=== PATIENT | male | born 2000 | race Caucasian/White ===

== ENCOUNTER 2019-09-16 09:21 | Day surgery (SDC) | payer OTHER ==
[2019-09-15 11:37] LABS: Absolute Lymphocytes (CBC) 1.1 K/uL (0.7-4.9); Basophils % 0.7 % (0-1.3); Hematocrit 43.8 % (39.6-49.0); Lymphocytes % 18.5 % (15.3-44.8); MPV 8.6 fL (7.6-11.3); RBC Red Blood Cell Count 5.21 M/uL (4.33-5.43)
[2019-09-15 11:59] LABS: ALT/SGPT 23 U/L (12-78); AST/SGOT 18 U/L (15-37); Albumin 4.1 g/dL (3.4-5.0); Alkaline Phosphatase 68 U/L (45-117); Amylase 28 U/L (25-115); BUN Blood Urea Nitrogen 11 mg/dL (7-18); Bicarbonate 30 mmol/L (21-32); Bilirubin Direct 0.2 mg/dL (0-0.2); Bilirubin Total 0.4 mg/dL (0.2-1.0); Glucose Level 94 mg/dL (74-106); Potassium 4.1 mmol/L (3.5-5.1); Protein, Total 7.2 g/dL (6.4-8.2); Sodium Level 142 mmol/L (136-145)
[2019-09-16] MEDS ORDERED: MIDAZOLAM HCL 2 MG/2 ML INJ ONE (09:34)
--- OUTSIDE RECORDS SUMMARY | 2019-09-16 09:34 | XMS REPORT ---
:2000 [facility] Address [address] [place] [id number] Care Team Providers Name Role Phone Unavailable Unavailable Unavailable Problems This patient has no known problems. Allergies, Adverse Reactions, Alerts This patient has no known allergies or adverse reactions. Medications This patient has no known medications. Encounters Start End Encounter Admission Attending Care Care Encounter Date/Time Date/Time Type Type Clinicians Facility Department ID 2019-08-27 2019-08-27 Emergency E [facility] [id number] 06:37:00 06:37:00 2019-04-25 2019-04-25 Emergency E [facility] [id number] 11:52:00 11:52:00
[2019-09-16] MEDS ORDERED: dexAMETHasone 10 MG/ML VIAL ONE (09:35)
[2019-09-16] MEDS ORDERED: propofoL 200 MG/20 ML VIAL IV ONE (09:35)
[2019-09-16] MEDS ORDERED: FENTANYL CITR 100 MCG/2 ML ONE (09:35)
[2019-09-16] MEDS ORDERED: LIDOCAINE 2% MPF 5 ML VIAL ONE (09:35)
[2019-09-16] MEDS ORDERED: ROCURONIUM 50 MG/5 ML VIAL IV ONE (09:36)
[2019-09-16] MEDS ORDERED: CEFOXITIN/SWI 1gm 1 GM/10 ML SYR ONE (09:44)
[2019-09-16] MEDS ORDERED: Ringers Lactate 1,000 ML IV ONE (09:44)
[2019-09-16] MEDS ORDERED: KETOROLAC 30 MG/ML INJ ONE (10:41)
[2019-09-16] MEDS ORDERED: GLYCOPYRROLATE 0.2 MG/ML SYR ONE (10:41)
[2019-09-16] MEDS ORDERED: NEOSTIGMINE 1 MG/ML -5 ML ONE (10:43)
[2019-09-16] MEDS ORDERED: Mastisol Adhesive Liq ONE (10:50)
--- NOTE | 2019-09-16 11:16 | P.BOP ---
Preoperative diagnosis: RUQ abd pain Postoperative diagnosis: same Primary procedure: Diagostic laparoscopy, Laparoscopic cholecystectomy Anesthesia: General Complications: None Transferred to: Recovery Room Condition: Good
[2019-09-16] MEDS: MEPERIDINE HCL 25 MG/ML SYR ONE ×2 (11:50→11:56)
[2019-09-16] MEDS: HYDROMORPHONE HCL 1 MG/ML INJ ONE ×2 (11:55→12:00)
[2019-09-16 11:56] VITALS: O2SAT 98
[2019-09-16] MEDS ORDERED: CODEINE 30MG/APAP 300MG TAB ONE (12:49)
[2019-09-16 13:03] VITALS: TEMP 97
[2019-09-16 13:14] VITALS: BP 118/74
--- NOTE | 2019-09-16 16:53 | DS ---
Date of Discharge: 09/16/2019 Diagnoses: Right upper quadrant abdominal pain, cholecystitis biliary dyskinesia, mesenteric adeniti s, and ascending colon colitis. Disposition: Home. Activity: As tolerated. No heavy lifting. Followup: Follow up in the office in 1 week. Call for appointment at [phone]. Discharge Instructions: Keep area dry for 48 hours, then may shower. Keep Steri-Strips intact. Medications: Include Cipro 500 p.o. q.12, Tylenol No. 3 q.4 hours p.r.n. Details of this and the pi ctures of the diagnostic lap were given to the patient and mother, fully explained the need to a foll owup with the corrections identification technician in this case with Dr. García, because patient will need a colonoscop y sooner than later. They understood. REYMUNDO/CATHERINE Voice ID: [id number] Report ID: [id number]
--- NOTE | 2019-09-16 17:02 | OP ---
Date of Procedure: 09/16/2019 Surgeon: Syed Cartagena MD Preoperative Diagnoses: Right upper quadrant abdominal pain, biliary dyskinesia, acute cholecystitis , mesenteric adenitis. Cannot rule out appendicitis. Postoperative Diagnoses: Right upper quadrant abdominal pain, biliary dyskinesia, acute cholecystiti s, mesenteric adenitis. Cannot rule out appendicitis. Procedures: Diagnostic laparoscopy, laparoscopic cholecystectomy. Anesthesia: General plus local. Findings: Gallbladder looks with mild information in that area. The area of the appendix looks with no extraluminal masses of inflammation. The cecum outside does not look erythematosus or inflamed, but when we pressed the area just above the cecum. When it started in the proximal ascending colon, he had a mass effect on that area. I am unable to say if that mass effect is infectious in origin or a neoplastic or bacteria. It could be even stool present in that area. I did not see outside of th e colon anything at that moment that we have to resect, although colonoscopy when this is, however, s hould be recommended. In the area of the small bowel, there were not seen any extraluminal masses. The liver and stomach with no extraluminal masses. History Of Present Illness: This is the case of a 19-year-old patient, who comes to us with abdomina l pain. He has been to his primary doctor. He has been to his breaker up back and forth try ing to find his condition and after all the workup he was found to have a biliary dyskinesia with a d uplication of symptoms with the CCK injection. He claimed his pain is in that area. Although every now and then, he has some pain also in the right lower quadrant. The CAT scan that was done previous to that shows mesenteric adenitis, but no specific etiology. So, because he is having pain intracta ble, he does not want to wait. He understand we have a national emergency, but his pain is so intens e, we offered him diagnostic laparoscopy, laparoscopic, possible open cholecystectomy, and he underst ands it will be in diagnostic lab looking in the area of the bowel specifically in the right side. Konstantin joel understands the benefits, alternatives, and risks of this procedure which include, but not limited to infection, bleeding, damage to adjacent structures, anesthesia complication, nonhealing wound, neg ative aspiration, TN and even . He also understands this may not relieve his symptoms. He migh t need more than one surgical intervention. His sister has history of Crohn disease, but he has been seeing a gastroenterologists better at that moment, they do not suspect that. So, we are going to t bharath a look at the area of the terminal ileum, and also the cecum to rule out to trying to see if ther e is anything that is suspicious for that. Description Of Procedure: The patient was brought to the operating room, placed in a supine position , anesthesia was without complication. Abdominal area was prepped and draped in usual sterile fashio n. Marcaine 0.5% was injected for local anesthetic followed by sharp incision of the skin in the inf raumbilical region. Incision was carried down to fascia, which was opened under direct vision. Carey toneum was encountered, opened under direct vision. Vicryl #1 placed inside the fascia. Beba troc ar was carefully introduced. No bleeding was obtained. After that, we proceeded to place an another trocar in the epigastric area and right upper quadrant, that well allowed me to do the diagnostic la p and the cholecystectomy. So, once we did that, we proceeded to do the diagnostic laparoscopy and w e followed the small bowel and it does not look like there is any swelling there or extraluminal mass es. Stomach and liver are least extracapsular and outside the stomach does not have any masses that we can see. Transverse descending colon to rectum does not have any inflammation present. Anterior abdominal wall does not show any evidence of hernias. The area of the mesentery, I cannot see any ma sses seen in that area. The appendix does not look erythematosus and was asymmetrical in the entire area. The bowel ascending colon and cecum even though from outside does not show any inflammation. When I pressed with my grasper gently, there was a mass effect in the area of the cecum and specifica lly a little bit proximal to the ileocecal valve. The etiology that if that was unknown, may be stoo ls, may be neoplastic, may be a bacterial colitis, at least from the from this area we cannot see it, may be the just stools in that area, but because he has a mesenteric adenitis, I will encourage this patient to have a colonoscopy as soon as possible to have eyes inside the colon on that region. The rest of the colon seems to be okay. Terminal ileum also does not seem to be inflamed. So, we went to the area of the gallbladder. We already have 2 trocars in the epigastric upper quadrant area. We will put a grasper in the fundus of the gallbladder, another grasper in the infundibulum, retracted the gallbladder in the inferolateral fashion exposing the triangle of Calot, obtaining critical view of safety. The cystic duct and cystic artery were clearly isolated, freed circumferentially. Any co nnection between those and the gallbladder was clearly identified. I proceeded to ligate those by us ing at least 2 clips proximal and 1 clip distal, ligation in middle. Same was done with the cystic a rtery. No bile leak. No bleeding. The gallbladder was removed from liver using Bovie cauterizer an d removed from abdominal cavity using an EndoCatch through the umbilical incision. The area was insp ected once again. Clips were intact. No bile leak. No bleeding. At that moment, I proceeded to re move the trocars under direct vision. Deflated the pneumoperitoneum. Closed the fascia with #1 Vicr yl. Irrigated subcutaneous tissue, closed that with 3-0 chromic and skin with subcuticular closure a nd Steri-Strips on top. Sponge counts and instrument counts were correct. Patient tolerated the pro cedure well. Patient was sent to Recovery in stable condition. REYMUNDO/CATHERINE Voice ID: [id number] Report ID: [id number]
== END 2019-09-16 13:20 | disposition home or self-care (01) ==
LOC: OR 09:21
PROVIDERS: ATTEND Surgery
PROC: 0FT44ZZ Resection of Gallbladder, Percutaneous Endoscopic Approach (ICD-10-PCS; principal; 2019-09-16 11:15)
DX: K81.0 Acute cholecystitis (principal); K82.8 Other specified diseases of gallbladder; I88.0 Nonspecific mesenteric lymphadenitis; J45.909 Unspecified asthma, uncomplicated; Z83.79 Family history of other diseases of the digestive system
CPT/HCPCS: 85025; 80048; 36415; 82150; 80076; 88304; 47562; J2704; J2250; J3010; J1100; J2175; J1170; J2710; J7120

== ENCOUNTER 2021-01-07 22:24 | Emergency (ER) | payer OTHER ==
--- OUTSIDE RECORDS SUMMARY | 2021-01-07 22:26 | XMS REPORT | Continuity of Care Document ---
:2000 Author Organization [facility] t Address [address] [place] [address] Care Team Providers Name Role Phone Lab, Fam Pob I Attending Clinician Unavailable Problems This patient has no known problems. Allergies, Adverse Reactions, Alerts This patient has no known allergies or adverse reactions. Medications This patient has no known medications. Procedures This patient has no known procedures. Encounters Start End Encounter Admission Attending Care Care Encounter Source Date/Time Date/Time Type Type Clinicians Facility Department ID 2020-01-24 2020-01-24 Laboratory Lab, Adc [facility] [id number] 09:36:49 09:56:49 Only Fam Pob I [facility] [id number] [place] [id number] [place] [id number] [address] 2019-08-27 2019-08-27 Emergency E [facility] [id number] MHBL 06:37:00 06:37:00 2019-04-25 2019-04-25 Emergency E [facility] [id number] MHBL 11:52:00 11:52:00 Results This patient has no known results.
[2021-01-08] MEDS ORDERED: TETANUS & DIPHTHERIA TOX,ADULT 0.5 ML VIAL ONE (01:08)
--- NOTE | 2021-01-08 01:15 | ER ---
Nurse's Notes [facility] Name: Leif Sahu Age: 20 yrs Sex: Male : 2000 Arrival Date: 01/07/2021 Time: 22:28 Bed 26 Private MD: Diagnosis: Puncture wound without foreign body, left foot Presentation: 01/07 23:46 Chief complaint: Patient states: stepped on nail at 530 PM, reports left heel pain, em tetanus is not up to date. Coronavirus screen: Client denies travel out of the [place] in the last 14 days. Ebola Screen: Patient negative for fever greater than or equal to 101.5 degrees Fahrenheit, and additional compatible Ebola Virus Disease symptoms Patient denies exposure to infectious person. Patient denies travel to an Ebola-affected area in the 21 days before illness onset. No symptoms or risks identified at this time. Initial Sepsis Screen: Does the patient meet any 2 criteria? No. Patient's initial sepsis screen is negative. Does the patient have a suspected source of infection? No. Patient's initial sepsis screen is negative. Risk Assessment: Do you want to hurt yourself or someone else? Patient reports no desire to harm self or others. Onset of symptoms was January 07, 2021. 23:46 Method Of Arrival: Ambulatory em 23:46 Acuity: MARIAA 4 em Historical: - Allergies: 23:47 No Known Allergies; em - PMHx: 23:47 Asthma; em - PSHx: 23:47 None; em - Immunization history:: Adult Immunizations not immunized, Last tetanus immunization: unknown. - Social history:: Smoking status: Patient denies any tobacco usage or history of. - Family history:: not pertinent. Screenin/13 00:39 Abuse screen: Denies threats or abuse. Nutritional screening: No deficits noted. em Tuberculosis screening: No symptoms or risk factors identified. Fall Risk None identified. Assessment: 00:40 General: Appears in no apparent distress. comfortable, Behavior is calm, cooperative, em appropriate for age. Pain: Complains of pain in heel of left foot. Neuro: Level of Consciousness is awake, alert, obeys commands, Oriented to person, place, time, situation, Appropriate for age. Cardiovascular: Capillary refill < 3 seconds Patient's skin is warm and dry. Respiratory: Airway is patent Respiratory effort is even, unlabored, Respiratory pattern is regular, symmetrical. Derm: Skin is intact, is healthy with good turgor, Skin is pink, warm \T\ dry. Musculoskeletal: Capillary refill < 3 seconds, Range of motion: intact in all extremities. Vital Signs: 01/07 23:46 BP 125 / 71; Pulse 78; Resp 18; Temp 98.1; Pulse Ox 99% on R/A; Weight 63.5 kg; Height em 6 ft. 1 in. (185.42 cm); Pain 4/10; 23:46 Body Mass Index 18.47 (63.50 kg, 185.42 cm) em ED Course: 22:28 Patient arrived in ED. es 23:47 Triage completed. em 23:47 Arm band placed on. em 01/08 00:16 Foot Left 3 View XRAY In Process Unspecified. EDMS 00:39 Juan Friend, RN is Primary Nurse. em 00:39 Patient has correct armband on for positive identification. em 00:48 Oskar Ureña MD is Attending Physician. kellen 01: No provider procedures requiring assistance completed. Patient did not have IV access em during this emergency room visit. Administered Medications: 00:51 Drug: Tetanus-Diphtheria Toxoid Adult 0.5 ml {[employer]: [employer]. Exp: em 08/31/2022. Lot #: [id number]. } Route: IM; Site: right deltoid; :25 Follow up: Response: No adverse reaction em 01:21 Drug: LevOfloxacin 750 mg Route: PO; em 01:25 Follow up: Response: No adverse reaction em 01:21 Drug: Bactrim (trimethoprim-sulfamethoxazole) (160 mg-800 mg (DS) 1 tablet Route: PO; em 01:25 Follow up: Response: No adverse reaction em 01:21 Drug: Neosporin (jteeopaw-ldtljokoyj-cjhxgjusi) Ointment 1 application Route: Topical; em Site: affected area; :25 Follow up: Response: No adverse reaction em Outcome: 01:15 Discharge ordered by . kellen 01:26 Discharged to home ambulatory, with family. em 01:26 Condition: stable 01:26 Discharge instructions given to patient, Instructed on discharge instructions, follow up and referral plans. medication usage, wound care, Demonstrated understanding of instructions, follow-up care, medications, wound care, Prescriptions given X 3. 01:27 Patient left the ED. em Signatures: Dispatcher [employer] Oskar Garcia MD MD cha Salyer, Edna es Munoz, Edgar, RN RN em Corrections: (The following items were deleted from the chart) 01/07 23:48 23:47 Allergies: Aspirin; em em 48 23:47 Allergies: No Known Allergies; em em 48 23:47 PMHx: None; em em
--- NOTE | 2021-01-08 01:16 | EDPHYS ---
Physician Documentation [facility] Name: Leif Sahu Age: 20 yrs Sex: Male : 2000 Arrival Date: 01/07/2021 Time: 22:28 Bed 26 Private MD: ED Physician Oskar Ureña HPI: 01/08 01:11 This 20 yrs old Male presents to ER via Ambulatory with complaints of Stepped kellen on nail. 01:11 The patient presents with decreased range of motion, pain. The complaints affect the kellen left foot. Context: The problem was sustained outdoors. Onset: The symptoms/episode began/occurred yesterday. Modifying factors: The symptoms are alleviated by elevation of extremity, the symptoms are aggravated by weight bearing, movement. Associated signs and symptoms: The patient has no apparent associated signs or symptoms. Severity of symptoms: At their worst the symptoms were mild, in the emergency department the symptoms are unchanged. The patient has not experienced similar symptoms in the past. Historical: - Allergies: 01/07 23:47 No Known Allergies; em - PMHx: 23:47 Asthma; em - PSHx: 23:47 None; em - Immunization history:: Adult Immunizations not immunized, Last tetanus immunization: unknown. - Social history:: Smoking status: Patient denies any tobacco usage or history of. - Family history:: not pertinent. ROS: 01/08 01:11 Constitutional: Negative for fever, chills, and weight loss, Eyes: Negative for injury, kellen pain, redness, and discharge, ENT: Negative for injury, pain, and discharge, Neck: Negative for injury, pain, and swelling, Cardiovascular: Negative for chest pain, palpitations, and edema, Respiratory: Negative for shortness of breath, cough, wheezing, and pleuritic chest pain, Abdomen/GI: Negative for abdominal pain, nausea, vomiting, diarrhea, and constipation, Back: Negative for injury and pain, : Negative for injury, bleeding, discharge, and swelling, Skin: Negative for injury, rash, and discoloration, Neuro: Negative for headache, weakness, numbness, tingling, and seizure, Psych: Negative for depression, anxiety, suicide ideation, homicidal ideation, and hallucinations, Allergy/Immunology: Negative for hives, rash, and allergies, Endocrine: Negative for neck swelling, polydipsia, polyuria, polyphagia, and marked weight changes, Hematologic/Lymphatic: Negative for swollen nodes, abnormal bleeding, and unusual bruising. MS/extremity: Positive for pain, puncture, of the heel of left foot. Exam: 01:11 Constitutional: This is a well developed, well nourished patient who is awake, alert, kellen and in no acute distress. Head/Face: Normocephalic, atraumatic. Eyes: Pupils equal round and reactive to light, extra-ocular motions intact. Lids and lashes normal. Conjunctiva and sclera are non-icteric and not injected. Cornea within normal limits. Periorbital areas with no swelling, redness, or edema. ENT: Nares patent. No nasal discharge, no septal abnormalities noted. Tympanic membranes are normal and external auditory canals are clear. Oropharynx with no redness, swelling, or masses, exudates, or evidence of obstruction, uvula midline. Mucous membranes moist. Neck: Trachea midline, no thyromegaly or masses palpated, and no cervical lymphadenopathy. Supple, full range of motion without nuchal rigidity, or vertebral point tenderness. No Meningismus. Chest/axilla: Normal chest wall appearance and motion. Nontender with no deformity. No lesions are appreciated. Cardiovascular: Regular rate and rhythm with a normal S1 and S2. No gallops, murmurs, or rubs. Normal PMI, no JVD. No pulse deficits. Respiratory: Lungs have equal breath sounds bilaterally, clear to auscultation and percussion. No rales, rhonchi or wheezes noted. No increased work of breathing, no retractions or nasal flaring. Abdomen/GI: Soft, non-tender, with normal bowel sounds. No distension or tympany. No guarding or rebound. No evidence of tenderness throughout. Back: No spinal tenderness. No costovertebral tenderness. Full range of motion. Skin: Warm, dry with normal turgor. Normal color with no rashes, no lesions, and no evidence of cellulitis. Neuro: Awake and alert, GCS 15, oriented to person, place, time, and situation. Cranial nerves II-XII grossly intact. Motor strength 5/5 in all extremities. Sensory grossly intact. Cerebellar exam normal. Normal gait. Psych: Awake, alert, with orientation to person, place and time. Behavior, mood, and affect are within normal limits. 01:11 Musculoskeletal/extremity: ROM: intact in all extremities, full active range of motion, full passive range of motion, Circulation is intact in all extremities. Sensation intact. Compartment Syndrome exam of affected extremity: is normal. Vital Signs: 01/07 23:46 BP 125 / 71; Pulse 78; Resp 18; Temp 98.1; Pulse Ox 99% on R/A; Weight 63.5 kg; Height em 6 ft. 1 in. (185.42 cm); Pain 4/10; 23:46 Body Mass Index 18.47 (63.50 kg, 185.42 cm) em MDM: 01/08 00:48 Patient medically screened. kellen 01:11 Differential diagnosis: foreign body, penetrating trauma, cellulitis. Data reviewed: kellen vital signs, nurses notes, lab test result(s), radiologic studies, plain films. Data interpreted: library monitor: rate is 78 beats/min, rhythm is regular, Pulse oximetry: on room air. Test interpretation: by ED physician or midlevel provider: plain radiologic studies. Counseling: I had a detailed discussion with the patient and/or guardian regarding: the historical points, exam findings, and any diagnostic results supporting the discharge/admit diagnosis. 01/07 23:48 Order name: Foot Left 3 View XRAY em 01/08 00:49 Order name: Wound Care; Complete Time: 00:52 kellen Administered Medications: 00:51 Drug: Tetanus-Diphtheria Toxoid Adult 0.5 ml {[employer]: [employer]. Exp: em 08/31/2022. Lot #: [id number]. } Route: IM; Site: right deltoid; 01:25 Follow up: Response: No adverse reaction em 01:21 Drug: LevOfloxacin 750 mg Route: PO; em 01:25 Follow up: Response: No adverse reaction em 01:21 Drug: Bactrim (trimethoprim-sulfamethoxazole) (160 mg-800 mg (DS) 1 tablet Route: PO; em 01:25 Follow up: Response: No adverse reaction em 01:21 Drug: Neosporin (kfasgcxy-mzywxrgpve-kkhatfces) Ointment 1 application Route: Topical; em Site: affected area; 01:25 Follow up: Response: No adverse reaction em Disposition Summary: 01/08/21 01:15 Discharge Ordered Location: Home kellen Problem: new kellen Symptoms: have improved kellen Condition: Stable kellen Diagnosis - Puncture wound without foreign body, left foot kellen Followup: kellen - With: Private Physician - When: 2 - 3 days - Reason: Recheck today's complaints, Continuance of care, Re-evaluation by your physician Discharge Instructions: - Discharge Summary Sheet kellen - Puncture Wound kellen - Puncture Wound, Jmaf-do-Usvs kellen Forms: - Medication Reconciliation Form kellen - Thank You Letter kellen - Antibiotic Education kellen - Prescription Opioid Use kellen Prescriptions: - Ibuprofen 600 mg Oral Tablet - take 1 tablet by ORAL route every 6 hours As needed take with food; 20 tablet; kellen Refills: 0, Product Selection Permitted - Bactrim DS 800-160 mg Oral Tablet - take 1 tablet by ORAL route every 12 hours for 7 days; 14 tablet; Refills: 0, [facility] Product Selection Permitted - levofloxacin 750 mg Oral Tablet - take 1 tablet by ORAL route once daily; 5 tablet; Refills: 0, Product Selection kellen Permitted Signatures: Dispatcher [employer] Oskar Garcia MD MD cha Munoz, Edgar, RN RN em Corrections: (The following items were deleted from the chart) 01/07 23:48 23:47 Allergies: Aspirin; em em 23:48 23:47 Allergies: No Known Allergies; em em 23:48 23:47 PMHx: None; em em
[2021-01-08] MEDS ORDERED: SMZ./TMP. 800/160 MG TABLET ONE (01:35)
[2021-01-08] MEDS ORDERED: levoFLOXacin 750 MG TAB ONE (01:35)
[2021-01-08 02:03] VITALS: BP 125/71; TEMP 98.1; O2SAT 99
--- NOTE | 2021-01-08 07:49 | RAD REPORT ---
EXAM DESCRIPTION: RAD - Foot Left 3 View - 01/08/2021 12:16 am CLINICAL HISTORY: Left Foot pain status post injury FINDINGS: No fracture or dislocation is seen. A radiopaque foreign body is not seen
== END 2021-01-08 01:27 | disposition home or self-care (01) ==
LOC: ER 22:24
DX: S91.332A Puncture wound without foreign body, left foot, initial encounter (principal); W22.8XXA Striking against or struck by other objects, initial encounter; Y93.01 Activity, walking, marching and hiking; Z23 Encounter for immunization
CPT/HCPCS: 90471; 90714; 99283

== ENCOUNTER 2022-08-28 17:11 | Emergency (ER) | payer OTHER ==
--- OUTSIDE RECORDS SUMMARY | 2022-08-28 17:16 | XMS REPORT | Continuity of Care Document ---
:2000 Author Organization [facility] t Address [address] [place] [address] [address] [place] [address] Care Team Providers Name Role Phone Jennifer Ashby NP Primary Care Physician ADRIAN FARLEY Attending Clinician Unavailable Lab, Adc Fam Pob I Attending Clinician Unavailable Jabier Palomino Attending Clinician JABIER BOURGEOIS Attending Clinician Unavailable TAMRA SHAH Attending Clinician Unavailable Payers Payer Name Policy Type Policy Number Effective Date Expiration Date S ource Problems This patient has no known problems. Allergies, Adverse Reactions, Alerts Allergy Allergy Status Severity Reaction(s) Onset Inactive Treating Comm ents Source Name Type Date Date Clinician NO KNOWN Drug Active Univers ALLERGIE Class ity of S [facility] Social History Social Habit Start Date Stop Date Quantity Comments Source Exposure to Not sure [facility] SARS-CoV-2 (event) Medica l Branch Alcohol intake 2016-11-26 2016-11-26 [facility] 00:00:00 00:00:00 Medical Branch Sex Assigned At [birth year] [facility] 00:00:00 00:00:00 Smoking Status Start Date Stop Date Source Tobacco smoking consumption [facility] unknown Never smoker [facility] Medications Ordered Filled Start Stop Current Ordering Indication Dosage Frequency Signature Comments Components Source Medication Medication Date Date Medication? Clinician (SIG) Name Name dicyclomine 20mg Q.5D Take 1 Met hodi (BENTYL) 20 16 -19 tablet (20 s t mg tablet 00:00: 04:59 mg total) Ho spita 00 :00 by mouth 2 l (two) times a day for 30 days. No known [facility] This patient has no known procedures. Plan of Care Planned Activity Planned Date Details Comments Source Future Scheduled 2022-06-10 [facility] Test 07:18:07 (#1) [code = COVID-19 VACCINE (#1)] Future Scheduled 2022-06-10 [facility] 07:18:07 screening (procedure) [code = 694191810] Future Scheduled 2022-06-10 INFLUENZA VACCINE [facility] Test 07:18:07 [code = INFLUENZA VACCINE] Encounters Start End Encounter Admission Attending Care Care Encounter Source Date/Time Date/Time Type Type Clinicians Facility Department ID 2021-08-14 2021-08-14 Emergency FARLEY, [facility] [id number] [place] 00:00:00 00:00:00 ADRIAN 157 Method i 2020-01-24 2020-01-24 Laboratory Lab, [facility] [id number] 09:36:49 09:56:49 Only Fam Pob I [facility] [id number] [place] [id number] Professio [phone] [place] [address] Office Building [facility] 2020-01-24 2020-01-24 Laboratory Lab, [facility] Fam Pob I [facility] [id number] Univers 09:36:49 09:56:49 Only Jabier [facility] [id number] ity of [place] [id number] Harsha as Professio [phone] De dical [address] Office Building [facility] 2020-01-24 2020-01-24 Outpatient R BK [facility] [id number] Univers 09:40:00 09:40:00 JABIER ity of [facility] 2020-01-24 2020-01-24 Outpatient R [facility] [id number] Univers 09:40:00 09:40:00 [id number] ity [facility] 2019-08-27 2019-08-27 Emergency E TAMRA SHAH BL BL [id number] [facility]BL 06:37:00 13:35:00 2019-04-25 2019-04-25 Emergency E BL BL [id number] BL 11:52:00 11:52:00 Results This patient has no known results.
[2022-08-28] MEDS ORDERED: IBUPROFEN 200 MG TAB PO ONE (17:47)
[2022-08-28] MEDS ORDERED: IBUPROFEN 400 MG TAB ONE (17:47)
--- NOTE | 2022-08-28 18:37 | RAD REPORT ---
EXAM DESCRIPTION: RAD - Forearm Right - 08/28/2022 6:11 pm COMPARISON: None. FINDINGS: Two views of the right forearm. No fracture is identified. Accessory ossicle at the tip of the ulnar styloid noted There is no disloc ation or periosteal reaction noted. No foreign body or other soft tissue abnormality. IMPRESSION: No acute osseous abnormality.
--- NOTE | 2022-08-28 19:00 | ER ---
Nurse's Notes [facility] Name: Leif Sahu Age: 22 yrs Sex: Male : 2000 Arrival Date: 08/28/2022 Time: 17:13 Bed IW9 Private MD: Diagnosis: Pain in right forearm Presentation: 08/28 17:45 Chief complaint: Patient states: Right FA pain that began 3 days ago, denies known aa5 injury. 17:45 Coronavirus screen: At this time, the client does not indicate any symptoms associated aa5 with coronavirus-19. Ebola Screen: Patient denies travel to an Ebola-affected area in the 21 days before illness onset. Initial Sepsis Screen: Does the patient meet any 2 criteria? No. Patient's initial sepsis screen is negative. Does the patient have a suspected source of infection? No. Patient's initial sepsis screen is negative. Risk Assessment: Do you want to hurt yourself or someone else? Patient reports no desire to harm self or others. Onset of symptoms was August 26, 2022. 17:45 Acuity: MARIAA 4 aa5 17:45 Method Of Arrival: Ambulatory aa5 Historical: - Allergies: 17:47 Codeine; aa5 - PMHx: 17:47 Asthma; aa5 - PSHx: 17:47 Cholecystectomy; aa5 - Immunization history:: Client reports having NOT received the Covid vaccine. - Social history:: Smoking status: Patient denies any tobacco usage or history of. Vital Signs: 17:45 BP 126 / 72; Pulse 79; Resp 18 S; Temp 98.0(TE); Pulse Ox 100% on R/A; Weight 77.11 kg aa5 (R); Height 6 ft. 1 in. (185.42 cm) (R); Pain 7/10; 17:45 Body Mass Index 22.43 (77.11 kg, 185.42 cm) aa5 ED Course: 17:13 Patient arrived in ED. am2 17:21 Hailey Cabrera FNP-C is PHCP. kb 17:21 Zhen Dobson MD is Attending Physician. kb 17:45 Arm band placed on. aa5 17:46 Triage completed. aa5 18:10 Forearm Right XRAY In Process Unspecified. EDMS Administered Medications: 17:45 Drug: Ibuprofen 600 mg Route: PO; aa5 Medication: 19:54 VIS not applicable for this client. vc1 Outcome: 18:59 Discharge ordered by MD. lazcano 19:54 Discharged to home ambulatory. vc1 19:54 Condition: good 19:54 Discharge instructions given to patient, Instructed on discharge instructions, follow up and referral plans. medication usage, Demonstrated understanding of instructions, follow-up care, medications. 19:54 Prescriptions given X 2. 19:54 Patient left the ED. vc1 Signatures: Dispatcher [employer] EDMS Hailey Cabrera, QUALITY ASSURANCE REPRESENTATIVE-C QUALITY ASSURANCE REPRESENTATIVE-Liat Child, RN RN aa5 Deanna Kinney am2 Acacia Thurston RN RN vc1
--- NOTE | 2022-08-28 19:00 | EDPHYS ---
Physician Documentation [facility] Name: Leif Sahu Age: 22 yrs Sex: Male : 2000 Arrival Date: 08/28/2022 Time: 17:13 Bed IW9 Private MD: ED Physician Zhen Dobson HPI: 08/28 18:57 This 22 yrs old Male presents to ER via Ambulatory with complaints of Arm Pain. kb 18:57 The patient or guardian complains of decreased range of motion, pain, tenderness. The kb complaints affect the right forearm. Context: resulted from repetitive motion digging a hole. Onset: The symptoms/episode began/occurred 3 day(s) ago. Treatment prior to arrival includes: no previous treatment. Modifying factors: The symptoms are alleviated by nothing. the symptoms are aggravated by movement. Associated signs and symptoms: Pertinent positives: decreased range of motion, pain. Severity of symptoms: At their worst the symptoms were moderate, in the emergency department the symptoms are unchanged. The patient has not experienced similar symptoms in the past. The patient has not recently seen a physician. Historical: - Allergies: 17:47 Codeine; aa5 - PMHx: 17:47 Asthma; aa5 - PSHx: 17:47 Cholecystectomy; aa5 - Immunization history:: Client reports having NOT received the Covid vaccine. - Social history:: Smoking status: Patient denies any tobacco usage or history of. ROS: 18:55 Constitutional: Negative for fever, chills, and weight loss. kb 18:55 MS/extremity: Positive for decreased range of motion, pain, tenderness, of the right forearm. 18:55 All other systems are negative. Exam: 18:56 Constitutional: This is a well developed, well nourished patient who is awake, alert, kb and in no acute distress. Head/Face: Normocephalic, atraumatic. ENT: Moist Mucous membranes Cardiovascular: Regular rate and rhythm with a normal S1 and S2. No gallops, murmurs, or rubs. No pulse deficits. Respiratory: Respirations even and unlabored. No increased work of breathing. Talking in full sentences Skin: Warm, dry with normal turgor. Normal color. Neuro: Awake and alert, GCS 15, oriented to person, place, time, and situation. Moves all extremities. Normal gait. Psych: Awake, alert, with orientation to person, place and time. Behavior, mood, and affect are within normal limits. 18:56 Musculoskeletal/extremity: Extremities: grossly normal except: noted in the right forearm: decreased ROM, pain, tenderness, ROM: limited active range of motion due to pain, Circulation is intact in all extremities. Sensation intact. Vital Signs: 17:45 BP 126 / 72; Pulse 79; Resp 18 S; Temp 98.0(TE); Pulse Ox 100% on R/A; Weight 77.11 kg aa5 (R); Height 6 ft. 1 in. (185.42 cm) (R); Pain 7/10; 17:45 Body Mass Index 22.43 (77.11 kg, 185.42 cm) aa5 MDM: 17:21 Patient medically screened. kb 18:56 Differential diagnosis: dislocation, closed fracture, contusion, tendonitis. Data kb reviewed: vital signs, nurses notes. Counseling: I had a detailed discussion with the patient and/or guardian regarding: the historical points, exam findings, and any diagnostic results supporting the discharge/admit diagnosis, radiology results, the need for outpatient follow up, a family practitioner, a orthopedic surgeon, to return to the emergency department if symptoms worsen or persist or if there are any questions or concerns that arise at home. 18:58 ED course: Patient is a 22-year-old male who presents for right forearm pain that kb started 3 days ago. States he has a plumbing issue under his house so has been taking all whole to get to it over the last 3 days and the pain has been progressively getting worse. On exam patient has tenderness and decreased range of motion to right forearm. No bony tenderness. X-ray shows no fracture. Patient educated on results and need for follow-up with orthopedist if symptoms continue. Educated on RICE. Verbal understanding received.. 08/28 17:21 Order name: Forearm Right XRAY; Complete Time: 18:51 kb 08/28 17:21 Order name: Wrist Splint; Complete Time: 19:52 kb Administered Medications: 17:45 Drug: Ibuprofen 600 mg Route: PO; aa5 Disposition Summary: 08/28/22 18:59 Discharge Ordered Location: Home kb Condition: Stable kb Diagnosis - Pain in right forearm kb Followup: kb - With: Emergency Department - When: As needed - Reason: Worsening of condition Followup: kb - With: Private Physician - When: 2 - 3 days - Reason: Recheck today's complaints, Continuance of care, Re-evaluation by your physician Discharge Instructions: - Discharge Summary Sheet kb - Musculoskeletal Pain kb Forms: - Medication Reconciliation Form kb - Thank You Letter kb - Antibiotic Education kb - Prescription Opioid Use kb Prescriptions: - Ibuprofen 600 mg Oral Tablet - take 1 tablet by ORAL route every 6 hours As needed take with food; 30 tablet; kb Refills: 0, Product Selection Permitted - orphenadrine citrate 100 mg Oral Tablet Sustained Release - take 1 tablet by ORAL route 2 times per day As needed; 20 tablet; Refills: 0, kb Product Selection Permitted Signatures: Dispatcher [employer] Hailey Ng, HEAD BAGGAGE PORTER-C HEAD BAGGAGE PORTER-Liat Child, RN RN aa5
== END 2022-08-28 19:54 | disposition home or self-care (01) ==
LOC: ER 17:11
DX: M79.631 Pain in right forearm (principal); Z88.5 Allergy status to narcotic agent
CPT/HCPCS: 99283

== ENCOUNTER 2022-10-30 13:50 | Emergency (ER) | payer OTHER ==
--- OUTSIDE RECORDS SUMMARY | 2022-10-30 13:53 | XMS REPORT | Continuity of Care Document ---
:2000 Author Organization [facility] t Address [address] [place] [address] [address] [place] [address] Care Team Providers Name Role Phone Jennifer [...] Active Univers ALLERGIE Class ity of S [facility] Social History Social Habit Start Date Stop Date Quantity Comments Source Exposure to Not sure [facility] SARS-CoV-2 (event) [facility] Gender identity [facility] History of Social 2021-08-14 2021-08-14 [facility] function 00:00:00 00:00:00 Alcohol intake 2016-11-26 2016-11-26 [facility] 00:00:00 00:00:00 [facility] Sex Assigned At [birth year] [facility] 00:00:00 00:00:00 Smoking Status Start Date Stop Date Source Tobacco smoking consumption [facility] unknown Never smoker [facility] Medications Ordered Filled Start Stop Current Ordering Indication Dosage Frequency Signature Comments Components Source Medication Medication Date Date Medication? Clinician (SIG) Name Name cateomine No 20mg Q.5D Take 1 Met hodi (BENTYL) 20 2-16 03-19 tablet (20 s t mg tablet 00:00: 04:59 mg total) Ho spita 00 :00 by mouth 2 l (two) times a day for 30 days. No known No Univers medications [facility] Procedures This patient has no known procedures. Plan of Care Planned Activity Planned Date Details Comments Source Future Scheduled 2022-10-30 [facility] 13:52:45 (#1) [code = COVID-19 VACCINE (#1)] Future Scheduled 2022-10-30 [facility] 13:52:45 screening (procedure) [code = [id number]] Future Scheduled 2022-10-30 INFLUENZA VACCINE Method [facility] Test 13:52:45 [code = INFLUENZA VACCINE] Future Scheduled 2022-06-10 [facility] 07:18:07 (#1) [code = COVID-19 VACCINE (#1)] Future Scheduled 2022-06-10 [facility] 07:18:07 screening (procedure) [code = [id number]] Future Scheduled 2022-06-10 INFLUENZA VACCINE Method [facility] Test 07:18:07 [code = INFLUENZA VACCINE] Encounters Start End Encounter Admission Attending Care Care Encounter Source Date/Time Date/Time Type Type Clinicians Facility Department ID 2021-08-14 2021-08-14 Emergency FARLEY, [facility] [id number] [place] 00:00:00 00:00:00 ADRIAN [address] 2020-01-24 2020-01-24 Laboratory Lab, Adc [place]am [place] [id number] Univers 09:36:49 09:56:49 Only Bk Jabier [facility] [id number] ity [facility] [id number] Harsha as Professio [phone] Me dical [place] [address] Branch [address] 2020-01-24 2020-01-24 Laboratory Lab, Adc [facility] [id number] 09:36:49 09:56:49 Only Fam Pob I Health [id number] [place] [id number] Professio [phone] [place] [address] [address] [facility] 2020-01-24 2020-01-24 Outpatient R BK [facility] [id number] Univers 09:40:00 09:40:00 JABIER [facility] 2020-01-24 2020-01-24 Outpatient R [facility] [id number] Univers 09:40:00 09:40:00 Bea [facility] 2019-08-27 2019-08-27 Emergency E TAMRA SHAH BL BL [id number] [facility] 06:37:00 13:35:00 2019-04-25 2019-04-25 Emergency E BL [facility] 7500 BL 11:52:00 11:52:00 Results This patient has no known results.
--- NOTE | 2022-10-30 14:19 | RAD REPORT ---
EXAM DESCRIPTION: CT - Head Brain Wo Cont - 10/30/2022 2:12 pm CLINICAL HISTORY: head injury Headache, drowsiness COMPARISON: <Comparisons> TECHNIQUE: All CT scans are performed using dose optimization technique as appropriate and may inclu de automated exposure control or mA/KV adjustment according to patient size. FINDINGS: No intracranial hemorrhage, hydrocephalus or extra-axial fluid collection.No areas of brai n edema or evidence of midline shift. The paranasal sinuses and mastoids are clear. The calvarium is intact. IMPRESSION: No acute intracranial abnormality.
[2022-10-30] MEDS ORDERED: ACETAMINOPHEN 325 MG TABLET ONE (14:52)
[2022-10-30] MEDS ORDERED: ONDANSETRON 4 MG (ODT) TAB ONE (14:53)
--- NOTE | 2022-10-30 15:05 | EDPHYS ---
Physician Documentation [facility] Name: Leif Sahu Age: 22 yrs Sex: Male : 2000 Arrival Date: 10/30/2022 Time: 13:50 Bed 9 Private MD: ED Physician Zhen Dobson HPI: 10/30 14:59 This 22 yrs old Male presents to ER via Wheelchair with complaints of Head Injury rn Without LOC-Adult. 14:59 The patient or guardian reports a laceration, 2 cm(s), clean, irregular, pain. The rn complaints affect the top of head. Onset: The symptoms/episode began/occurred just prior to arrival. Severity of symptoms: At their worst the symptoms were mild, in the emergency department the symptoms are unchanged. The patient has not experienced similar symptoms in the past. The patient has not recently seen a physician. Last tetanus a year ago.. Historical: - Allergies: 14:00 Codeine; aa5 - PMHx: 14:00 Asthma; IBS; aa5 - PSHx: 14:00 Cholecystectomy; aa5 - Immunization history:: Adult Immunizations unknown. - Social history:: Smoking status: Patient denies any tobacco usage or history of. - Family history:: not pertinent. - Hospitalizations: : No recent hospitalization is reported. ROS: 14:59 Constitutional: Negative for fever, chills, and weight loss, Skin: + laceration to rn scalp Neuro: + headache Exam: 14:59 Constitutional: This is a well developed, well nourished patient who is awake, alert, rn and in no acute distress. Head/Face: Normocephalic, 2 cm irregular superficial laceration to top of scalp, no active bleeding, no foreign body Neuro: Awake and alert, GCS 15 Vital Signs: 14:00 BP 135 / 96; Pulse 69; Resp 18 S; Temp 98(TE); Pulse Ox 100% on R/A; aa5 15:23 BP 130 / 78; Pulse 78; Resp 16; Pulse Ox 99% ; mb9 [place] Coma Score: 14:59 Eye Response: spontaneous(4). Motor Response: obeys commands(6). Verbal Response: rn oriented(5). Total: 15. 14:59 Eye Response: spontaneous(4). Motor Response: obeys commands(6). Verbal Response: rn oriented(5). Total: 15. Laceration: 14:59 Wound Repair of 2cm ( 0.8in ) subcutaneous laceration to top of head. Distal rn neuro/vascular/tendon intact. Wound prep: Moderate cleansing by nurse, Wound explored moderately. Skin closed with 2 35 R hal Prolene using staple gun. Dressed with Kerlix. Patient tolerated well. MDM: 14:00 Patient medically screened. rn 14:59 Differential diagnosis: Contusion of Laceration of Intracranial bleed- Concussion rn cerebral contusion. Data reviewed: vital signs, nurses notes, radiologic studies, CT scan, and as a result, I will discharge patient. Counseling: I had a detailed discussion with the patient and/or guardian regarding: the historical points, exam findings, and any diagnostic results supporting the discharge/admit diagnosis, radiology results, the need for outpatient follow up, to return to the emergency department if symptoms worsen or persist or if there are any questions or concerns that arise at home. Response to treatment: the patient's symptoms have markedly improved after treatment, and as a result, I will discharge patient. 14:59 Special discussion: I discussed with the patient/guardian in detail that at this point rn there is no indication for admission to the hospital. It is understood, however, that if the symptoms persist or worsen the patient needs to return immediately for re-evaluation. 10/30 14:04 Order name: CT Head Brain wo Cont; Complete Time: 14:31 rn 10/30 14:05 Order name: Wound Care; Complete Time: 14:55 rn 10/30 14:05 Order name: Wound dressing; Complete Time: 14:55 rn Administered Medications: 14:54 Drug: Acetaminophen PO 650 mg Route: PO; mb9 14:55 Drug: Ondansetron PO 4 mg Route: PO; mb9 Disposition Summary: 10/30/22 15:05 Discharge Ordered Location: Home rn Problem: new rn Symptoms: have improved rn Condition: Stable rn Diagnosis - Laceration without foreign body of unspecified part of head rn - Unspecified injury of head, initial encounter rn - Concussion without loss of consciousness rn Followup: rn - With: Private Physician - When: As needed - Reason: Recheck today's complaints, Re-evaluation by your physician Followup: rn - With: Emergency Department - When: 7 - 10 days - Reason: Staple/Suture removal Discharge Instructions: - Discharge Summary Sheet rn - Concussion, Adult rn - Head Injury, Adult rn - Laceration Care, Adult rn - Sutures, [place], or Adhesive Wound Closure rn Forms: - Medication Reconciliation Form rn - Thank You Letter rn - Antibiotic communications intern - Prescription Opioid Use rn - Work release form mb9 Signatures: Dispatcher [employer] Zhen Ryan MD MD rn Calderon, Audri, RN RN aa5 Bibi Ramirez RN RN mb9
--- NOTE | 2022-10-30 15:05 | ER ---
Nurse's Notes [facility] Name: Leif Sahu Age: 22 yrs Sex: Male : 2000 Arrival Date: 10/30/2022 Time: 13:50 Bed 9 Private MD: Diagnosis: Laceration without foreign body of unspecified part of head;Unspecified injury of head, initial encounter;Concussion without loss of consciousness Presentation: 10/30 14:00 Chief complaint: Patient states: "I was hooking up a trailer and when I stood up I hit aa5 a corner and I cut my head". Laceration to top of head noted, mild bleeding noted. Coronavirus screen: At this time, the client does not indicate any symptoms associated with coronavirus-19. Ebola Screen: Patient denies travel to an Ebola-affected area in the 21 days before illness onset. Initial Sepsis Screen: Does the patient meet any 2 criteria? No. Patient's initial sepsis screen is negative. Does the patient have a suspected source of infection? No. Patient's initial sepsis screen is negative. Risk Assessment: Do you want to hurt yourself or someone else? Patient reports no desire to harm self or others. Onset of symptoms was October 30, 2022. 14:00 Acuity: MARIAA 3 aa5 14:00 Method Of Arrival: Wheelchair aa5 Historical: - Allergies: 14:00 Codeine; aa5 - PMHx: 14:00 Asthma; IBS; aa5 - PSHx: 14:00 Cholecystectomy; aa5 - Immunization history:: Adult Immunizations unknown. - Social history:: Smoking status: Patient denies any tobacco usage or history of. - Family history:: not pertinent. - Hospitalizations: : No recent hospitalization is reported. Assessment: 15:00 Reassessment: Patient and/or family updated on plan of care and expected duration. Pain mb9 level reassessed. Patient is alert, oriented x 3, equal unlabored respirations, skin warm/dry/pink. Neuro: Level of Consciousness is awake, alert, obeys commands, Oriented to person, place, time, situation, Appropriate for age. Respiratory: Airway is patent Respiratory effort is even, unlabored. GI: Reports nausea. Derm: Wound noted top of head. Injury Description: Laceration sustained to top of head is 0.5 to 2.5 cm long, not bleeding. Vital Signs: 14:00 BP 135 / 96; Pulse 69; Resp 18 S; Temp 98(TE); Pulse Ox 100% on R/A; aa5 15:23 BP 130 / 78; Pulse 78; Resp 16; Pulse Ox 99% ; mb9 [place] Coma Score: 14:59 Eye Response: spontaneous(4). Motor Response: obeys commands(6). Verbal Response: rn oriented(5). Total: 15. 14:59 Eye Response: spontaneous(4). Motor Response: obeys commands(6). Verbal Response: rn oriented(5). Total: 15. ED Course: 13:52 Patient arrived in ED. aa5 14:00 Zhen Dobson MD is Attending Physician. rn 14:00 Arm band placed on. aa5 14:02 Triage completed. aa5 14:14 CT Head Brain wo Cont In Process Unspecified. EDMS 15:24 No provider procedures requiring assistance completed. Patient did not have IV access mb9 during this emergency room visit. Administered Medications: 14:54 Drug: Acetaminophen PO 650 mg Route: PO; mb9 14:55 Drug: Ondansetron PO 4 mg Route: PO; mb9 Outcome: 15:05 Discharge ordered by . rn 15:24 Discharged to home ambulatory. mb9 15:24 Condition: stable 15:24 Discharge instructions given to patient, Instructed on discharge instructions, follow up and referral plans. Demonstrated understanding of instructions, follow-up care. 15:24 Patient left the ED. mb9 Signatures: Dispatcher [employer] EDNE Zhen Dobson MD MD rn Calderon, Audri RN RN aa5 Bibi Ramirez RN RN mb9
[2022-10-30 15:28] VITALS: TEMP 98
[2022-10-30 15:30] VITALS: BP 130/78; O2SAT 99
== END 2022-10-30 15:24 | disposition home or self-care (01) ==
LOC: ER 13:50
PROC: 0HQ0XZZ Repair Scalp Skin, External Approach (ICD-10-PCS; principal; 2022-10-30)
DX: S01.81XA Laceration without foreign body of other part of head, initial encounter (principal); S06.0X0A Concussion without loss of consciousness, initial encounter; Z88.5 Allergy status to narcotic agent
CPT/HCPCS: 70450; 99283; 12001; Q0162

== ENCOUNTER 2022-11-08 08:18 | Emergency (ER) | payer OTHER ==
--- OUTSIDE RECORDS SUMMARY | 2022-11-08 08:20 | XMS REPORT | Continuity of Care Document ---
:2000 Author Organization [facility] t Address [address] [facility] [address] [place] [address] Care Team Providers Name Role Phone Jennifer [...] Active Univers ALLERGIE Class ity of S [facility] Social History Social Habit Start Date Stop Date Quantity Comments Source Exposure to Not sure [facility] SARS-CoV-2 (event) [facility] Gender identity [facility] of Social 2021-08-14 2021-08-14 [facility] function 00:00:00 00:00:00 Alcohol intake 2016-11-26 2016-11-26 [facility] 00:00:00 00:00:00 [facility] Sex Assigned At [birth year] [facility] 00:00:00 00:00:00 Smoking Status Start Date Stop Date Source Tobacco smoking consumption Meth [facility] unknown Never smoker [facility] Medications Ordered Filled Start Stop Current Ordering Indication Dosage Frequency Signature Comments Components Source Medication Medication Date Date Medication? Clinician (SIG) Name Name dicsaurabhomine 20mg Q.5D Take 1 Met hodi (BENTYL) 20 2-16 03-19 tablet (20 s t mg tablet 00:00: 04:59 mg total) Ho spita 00 :00 by mouth 2 l (two) times a day for 30 days. No known No Univers medications [facility] Procedures This patient has no known procedures. Plan of Care Planned Activity Planned Date Details Comments Source Future Scheduled 2022-10-30 [facility] 13:[facility] (#1) [code = COVID-19 VACCINE (#1)] Future Scheduled 2022-10-30 [facility] 13:52:45 screening (procedure) [code = 634033705] Future Scheduled 2022-10-30 INFLUENZA VACCINE Method [facility] Test 13:52:45 [code = INFLUENZA VACCINE] Future Scheduled 2022-10-30 [facility] 13:52:45 (#1) [code = COVID-19 VACCINE (#1)] Future Scheduled 2022-10-30 [facility] Test 13:52:45 screening (procedure) [code = 726318449] Future Scheduled 2022-10-30 INFLUENZA VACCINE [facility] Test 13:52:45 [code = INFLUENZA VACCINE] Future Scheduled 2022-06-10 [facility] 07:18:07 (#1) [code = COVID-19 VACCINE (#1)] Future Scheduled 2022-06-10 [facility] Test 07:18:07 screening (procedure) [code = 788173274] Future Scheduled 2022-06-10 INFLUENZA VACCINE [facility] Test 07:18:07 [code = INFLUENZA VACCINE] Encounters Start End Encounter Admission Attending Care Care Encounter Source Date/Time Date/Time Type Type Clinicians Facility Department ID 2021-08-14 2021-08-14 Emergency [place] [id number] [place] 00:00:00 00:00:00 ADRIAN [address] 2020-01-24 2020-01-24 Laboratory Lab, [facility] Fam Pob I [facility] 1.2. [id number] Univers 09:36:49 09:56:49 Only Jabier Bourgeois [facility] [id number] ity [facility] [id number] Harsha as Professio [phone] Me dical [address] Office Building [facility] 2020-01-24 2020-01-24 Laboratory Lab, [facility] [id number] 09:36:49 09:56:49 Only Fam Pob I Health [id number] [place] [id number] Professio [phone] [place] [address] Office [facility] 2020-01-24 2020-01-24 Outpatient R BK [facility] [id number] Univers 09:40:00 09:40:00 JABIER lavon [facility] 2020-01-24 2020-01-24 Outpatient R [facility] [id number] Univers 09:40:00 09:40:00 [id number] [facility] 2019-08-27 2019-08-27 Emergency E TAMRA SHAH [facility] [id number] [facility] 06:37:00 13:35:00 2019-04-25 2019-04-25 Emergency E [facility]BL [facility] [id number] [facility] 11:52:00 11:52:00 Results This patient has no known results.
--- NOTE | 2022-11-08 08:32 | EDPHYS ---
Physician Documentation [facility] Name: Leif Sahu Age: 22 yrs Sex: Male : 2000 Arrival Date: 11/08/2022 Time: 08:18 Bed IW1 Private MD: ED Physician Juan Daniel HPI: 11/08 08:28 This 22 yrs old Male presents to ER via Ambulatory with complaints of Staple Removal. cp 08:28 The patient has hal on the scalp. Previous treatment: The patient was initially cp treated 9 day(s) ago, the care was rendered at [facility], Treatment type: The patient's original treatment included hal, Previous recheck: the patient has not been checked since the original treatment. Sutures/hal progress: The patient has no c/o's. The wound is well-healing with no redness, swelling, discharge, or dehiscence reported. Historical: - Allergies: 08:23 Codeine; aa5 - PMHx: 08:23 Asthma; ibs; aa5 - PSHx: 08:23 Cholecystectomy; aa5 ROS: 08:28 Constitutional: Negative for body aches, chills, fever, poor PO intake. cp 08:28 Respiratory: Negative for cough, shortness of breath, wheezing. 08:28 Abdomen/GI: Negative for abdominal pain, nausea, vomiting, and diarrhea. 08:28 Skin: Positive for laceration(s), of the scalp. 08:28 Neuro: Negative for altered mental status, headache, weakness. 08:28 All other systems are negative. Exam: 08:29 Constitutional: The patient appears in no acute distress, alert, awake, comfortable, cp non-toxic, well developed, well nourished. 08:29 Skin: Wound recheck: Staple laceration closure: the wound is healing well, the edges are well approximated, no evidence of dehiscence, no drainage, no erythema, no swelling, located top of head. 08:29 Neuro: Orientation: to person, place \T\ time. Mentation: is normal, Motor: moves all fours, strength is normal, Sensation: is normal, Gait: is steady, at a normal pace, without difficulty. Vital Signs: 08:23 BP 142 / 76; Pulse 70; Resp 16 S; Temp 97.8(TE); Pulse Ox 100% on R/A; aa5 MDM: 08:23 Patient medically screened. cp 08:31 Data reviewed: vital signs, nurses notes, and as a result, I will discharge patient. cp Administered Medications: No medications were administered Disposition Summary: 11/08/22 08:32 Discharge Ordered Location: Home cp Problem: new cp Symptoms: have improved cp Condition: Stable cp Diagnosis - Encounter for removal of sutures - 2 hal cp Followup: cp - With: Private Physician - When: As needed - Reason: Worsening of condition Discharge Instructions: - Discharge Summary Sheet cp - Sutures, [place], or Adhesive Wound Closure cp Forms: - Medication Reconciliation Form cp - Thank You Letter cp - Antibiotic Education cp - Prescription Opioid Use cp Signatures: Liat Sierra RN RN aa5 Oskar Odell PA PA cp
--- NOTE | 2022-11-08 08:32 | ER ---
Nurse's Notes [facility] Name: Leif Sahu Age: 22 yrs Sex: Male : 2000 Arrival Date: 11/08/2022 Time: 08:18 Bed IW1 Private MD: Diagnosis: Encounter for removal of sutures-2 hal Presentation: 11/08 08:23 Chief complaint: Patient states: need for staple removal from head, reports hal aa5 were placed 9 days ago. Coronavirus screen: At this time, the client does not indicate any symptoms associated with coronavirus-19. Ebola Screen: Patient denies travel to an Ebola-affected area in the 21 days before illness onset. Initial Sepsis Screen: Does the patient meet any 2 criteria? No. Patient's initial sepsis screen is negative. Does the patient have a suspected source of infection? No. Patient's initial sepsis screen is negative. Risk Assessment: Do you want to hurt yourself or someone else? Patient reports no desire to harm self or others. Onset of symptoms was November 08, 2022. 08:23 Acuity: MARIAA 4 aa5 08:23 Method Of Arrival: Ambulatory aa5 Historical: - Allergies: 08:23 Codeine; aa5 - PMHx: 08:23 Asthma; ibs; aa5 - PSHx: 08:23 Cholecystectomy; aa5 Assessment: 08:23 Reassessment: Patient is alert, oriented x 3, equal unlabored respirations, skin aa5 warm/dry/pink. Vital Signs: 08:23 BP 142 / 76; Pulse 70; Resp 16 S; Temp 97.8(TE); Pulse Ox 100% on R/A; aa5 ED Course: 08:19 Patient arrived in ED. ts1 08:21 Oskar Odell PA is PHCP. cp 08:21 Juan Daniel MD is Attending Physician. cp 08:23 Triage completed. aa5 08:23 Arm band placed on. aa5 08:23 Patient has correct armband on for positive identification. aa5 08:26 staple removal, 2 hal removed from head by HENNA, pt tolerated well. aa5 08:27 Patient did not have IV access during this emergency room visit. aa5 Administered Medications: No medications were administered Medication: : VIS not applicable for this client. aa5 Outcome: 08:27 No charge visit due to staple removal. . aa5 08:32 Discharge ordered by . idania 08:32 Discharged to home ambulatory. aa5 08:32 Condition: good 08:32 Discharge instructions given to patient, Instructed on discharge instructions, follow up and referral plans. Demonstrated understanding of instructions, follow-up care. 08:34 Patient left the ED. aa5 Signatures: Liat Sierra RN RN aa5 Oskar Odell PA PA cp Simpson, Tanya, PAS PAS ts1
[2022-11-08 08:44] VITALS: BP 142/76; TEMP 97.8; O2SAT 100
== END 2022-11-08 08:34 | disposition home or self-care (01) ==
LOC: ER 08:18
DX: Z48.02 Encounter for removal of sutures (principal)

== ENCOUNTER 2022-12-16 07:40 | Emergency (ER) | payer OTHER ==
--- OUTSIDE RECORDS SUMMARY | 2022-12-16 07:42 | XMS REPORT | Continuity of Care Document ---
:2000 Author Organization [facility] t Address [address] [facility] [place] [address] Care Team Providers Name Role Phone eJnnifer Ashby NP Primary Care Physician ADRIAN FARLEY [...] Active Univers ALLERGIE Class ity of S [facility] Social History Social Habit Start Date Stop Date Quantity Comments Source Exposure to Not sure [facility] (event[facility] Gender identity [facility] of Social 2021-08-14 2021-08-14 [facility] function 00:00:00 00:00:00 Alcohol intake 2016-11-26 2016-11-26 [facility] 00:00:00 00:00:00 [facility] Sex Assigned At [birth year] Met [facility] 00:00:00 00:00:00 Smoking Status Start Date Stop Date Source Tobacco smoking consumption Meth [facility] unknown Never smoker [facility] Medications Ordered Filled Start Stop Current Ordering Indication Dosage Frequency Signature Comments Components Source Medication Medication Date Date Medication? Clinician (SIG) Name Name dicyclomine 20mg Q.5D Take 1 Met speedy (BENTYL) 20 2-16 03-19 tablet (20 s t mg tablet 00:00: 04:59 mg total) Ho spita 00 :00 by mouth 2 l (two) times a day for 30 days. No known No Univers medications [facility] Procedures This patient has no known procedures. Plan of Care Planned Activity Planned Date Details Comments Source Future Scheduled 2022-12-15 COVID-19 VACCINE [facility] Test 14:44:22 (#1) [code = COVID-19 VACCINE (#1)] Future Scheduled 2022-12-15 [facility] 14:44:22 screening (procedure) [code = [id number]] Future Scheduled 2022-12-15 INFLUENZA VACCINE Method [facility] Test 14:44:22 [code = INFLUENZA VACCINE] Future Scheduled 2022-10-30 COVID-19 VACCINE [facility] Test 13:52:45 (#1) [code = COVID-19 VACCINE (#1)] Future Scheduled 2022-10-30 [facility] 13:52:45 screening (procedure) [code = [id number]] Future Scheduled 2022-10-30 INFLUENZA VACCINE Method [facility] Test 13:52:45 [code = INFLUENZA VACCINE] Future Scheduled 2022-10-30 COVID-19 VACCINE [facility] Test 13:52:45 (#1) [code = COVID-19 VACCINE (#1)] Future Scheduled 2022-10-30 [facility] Test 13:52:45 screening (procedure) [code = [id number]] Future Scheduled 2022-10-30 INFLUENZA VACCINE Method [facility] Test 13:52:45 [code = INFLUENZA VACCINE] Future Scheduled 2022-06-10 COVID-19 VACCINE [facility] Test 07:18:07 (#1) [code = COVID-19 VACCINE (#1)] Future Scheduled 2022-06-10 [facility] Test 07:18:07 screening (procedure) [code = 565303299] Future Scheduled 2022-06-10 [facility] Test 07:18:07 [code = INFLUENZA VACCINE] Encounters Start End Encounter Admission Attending Care Care Encounter Source Date/Time Date/Time Type Type Clinicians Facility Department ID 2021-08-14 2021-08-14 Emergency MARTINE, [facility] [id number] [address] [place] 00:00:00 00:00:00 ADRIAN [address] 2020-01-24 2020-01-24 Laboratory Lab, [facility] Fam Pob I [facility] 1.2. [id number] Univers 09:36:49 09:56:49 Only [facility] [id number] [facility] [id number] Harsha as Professio [phone] [place] dical [address] [facility] 2020-01-24 2020-01-24 Laboratory Lab, [facility] [id number] 09:36:49 09:56:49 Only Fam Pob I Health [id number] [place] [id number] Professio [phone] [place] [address] [facility] 2020-01-24 2020-01-24 Outpatient R BK [facility] [id number] Univers 09:40:00 09:40:00 JABIER itlavon [facility] 2020-01-24 2020-01-24 Outpatient R [facility] [id number] Univers 09:40:00 09:40:00 [id number] ity [facility] 2019-08-27 2019-08-27 Emergency E SHAHTAMRA [facility] [id number] [facility] 06:37:00 13:35:00 2019-04-25 2019-04-25 Emergency E [facility]BL [facility] [id number] [facility] 11:52:00 11:52:00 Results This patient has no known results.
[2022-12-16 08:44] LABS: Absolute Lymphocytes (CBC) 1.5 K/uL (0.7-4.9); Hematocrit 44.5 % (39.6-49.0); Lymphocytes % 23.9 % (15.3-44.8); MCV 86.1 fL (80-100); MPV 8.9 fL (7.6-11.3); RBC Red Blood Cell Count 5.16 M/uL (4.33-5.43)
[2022-12-16 08:57] LABS: Specific Gravity 1.006 (1.005-1.030); Urine Bilirubin NEGATIVE (Negative); Urine Blood Negative (Negative); Urine Clarity Clear (Clear); Urine Color Colorless (Yellow); Urine Glucose NEGATIVE (Negative); Urine Protein NEGATIVE (Negative); Urine Urobilinogen Normal (Normal); Urine pH 6.5 (5.0-7.0)
[2022-12-16 08:58] LABS: Albumin 4.1 g/dL (3.4-5.0); Potassium 3.6 mEq/L (3.5-5.1); Protein, Total 6.7 g/dL (6.4-8.2)
[2022-12-16] MEDS ORDERED: NA CHLORIDE 0.9% 1,000 ML ONE (09:26)
[2022-12-16] MEDS ORDERED: MORPHINE 4 MG/ML SYR ONE (09:26)
[2022-12-16] MEDS ORDERED: ONDANSETRON 4 MG/2 ML VIAL ONE (09:26)
--- NOTE | 2022-12-16 10:00 | RAD REPORT ---
EXAM DESCRIPTION: CT - Abdomen Pelvis W Contrast - 12/16/2022 9:29 am CLINICAL HISTORY: ABD PAIN COMPARISON: Abdomen Pelvis W Contrast dated 08/24/2019; CT ABD PELVIS W CONTRAST dated 09/26/2013 TECHNIQUE: Thin cut axial CT imaging of the abdomen and pelvis was performed following intravenous a dministration of 95 mL Isovue 300. Multiplanar reformats were generated and reviewed. All CT scans are performed using dose optimization technique as appropriate and may include automated exposure control or mA/KV adjustment according to patient size. FINDINGS: No suspicious findings in the lung bases. The liver, spleen, and adrenal glands show no suspicious findings. Lobulated and somewhat bulky appea kyara of the tail of the pancreas again seen, although more conspicuous than on prior exam. No differ ential enhancement to suggest an underlying suspicious mass. Status post cholecystectomy. No intra or extrahepatic biliary ductal dilation. Symmetric renal function is seen with no hydronephrosis or suspicious renal mass. No dilated bowel loops or bowel wall thickening. No free air, free fluid or inflammatory stranding. N o hernia, mass or bulky lymphadenopathy. The urinary bladder is without significant finding. No suspicious bony findings. IMPRESSION: No acute intra-abdominal process. Lobulated and somewhat bulky appearance of the tail of the pancreas, with increased conspicuity, favo red to be technical. Low suspicion for any underlying abnormalities. If there is clinical concern for an underlying malignancy or increased risk, this can be further assessed by dedicated abdomen MRI a with dynamic postcontrast imaging for better soft tissue characterization.
[2022-12-16] MEDS ORDERED: KETOROLAC 30 MG/ML INJ ONE (10:41)
--- NOTE | 2022-12-16 11:48 | EDPHYS ---
Physician Documentation [facility] Name: Leif Sahu Age: 22 yrs Sex: Male : 2000 Arrival Date: 12/16/2022 Time: 07:40 Bed 8 Private MD: ED Physician Benedict Stahl HPI: 12/16 16:49 This 22 yrs old Male presents to ER via Ambulatory with complaints of Abdominal Pain. kdr 16:49 Patient presents to the ED in mild to moderate discomfort. He complains of right lower kdr quadrant pain that began last night. He describes the discomfort as cramping. He has a history of IBS but has not had symptoms exactly like this before. He is also vomited several times. Patient is otherwise in his usual state of health and in general looks mildly uncomfortable but nontoxic-appearing. Onset: The symptoms/episode began/occurred last night. Severity of symptoms: At their worst the symptoms were mild moderate just prior to arrival, in the emergency department the symptoms are unchanged. The patient has not experienced similar symptoms in the past. The patient has not recently seen a physician. Historical: - Allergies: 07:51 Codeine; aa5 - PMHx: 07:51 Asthma; ibs; aa5 - PSHx: 07:51 Cholecystectomy; Inguinal hernia; aa5 - Immunization history:: Adult Immunizations unknown. - Social history:: Smoking status: Patient denies any tobacco usage or history of. ROS: 16:49 Constitutional: Negative for fever, chills, and weight loss, Eyes: Negative for injury, kdr pain, redness, and discharge, ENT: Negative for injury, pain, and discharge, Neck: Negative for injury, pain, and swelling, Cardiovascular: Negative for chest pain, palpitations, and edema, Respiratory: Negative for shortness of breath, cough, wheezing, and pleuritic chest pain, Back: Negative for injury and pain, : Negative for injury, bleeding, discharge, and swelling, MS/Extremity: Negative for injury and deformity, Skin: Negative for injury, rash, and discoloration, Neuro: Negative for headache, weakness, numbness, tingling, and seizure activity. Psych: Negative for depression, anxiety, suicide ideation, homicidal ideation, and hallucinations, Allergy/Immunology: Negative for hives, rash, and allergies, Endocrine: Negative for neck swelling, polydipsia, polyuria, polyphagia, and marked weight changes, Hematologic/Lymphatic: Negative for swollen nodes, abnormal bleeding, and unusual bruising. 16:49 Abdomen/GI: Positive for abdominal pain, nausea and vomiting, black/tarry stool, of the right lower quadrant, Negative for diarrhea, constipation, abdominal distension, anorexia, dysphagia, hematemesis, rectal pain. Exam: 16:49 Constitutional: This is a well developed, well nourished patient who is awake, alert, kdr and in no acute distress. Head/Face: Normocephalic, atraumatic. Eyes: Pupils equal round and reactive to light, extra-ocular motions intact. Lids and lashes normal. Conjunctiva and sclera are non-icteric and not injected. Cornea within normal limits. Periorbital areas with no swelling, redness, or edema. Neck: Trachea midline, no thyromegaly or masses palpated, and no cervical lymphadenopathy. Supple, full range of motion without nuchal rigidity, or vertebral point tenderness. No Meningismus. Chest/axilla: Normal chest wall appearance and motion. Nontender with no deformity. No lesions are appreciated. Cardiovascular: Regular rate and rhythm with a normal S1 and S2. No gallops, murmurs, or rubs. Normal PMI, no JVD. No pulse deficits. Respiratory: Lungs have equal breath sounds bilaterally, clear to auscultation and percussion. No rales, rhonchi or wheezes noted. No increased work of breathing, no retractions or nasal flaring. Back: No spinal tenderness. No costovertebral tenderness. Full range of motion. Skin: Warm, dry with normal turgor. Normal color with no rashes, no lesions, and no evidence of cellulitis. MS/ Extremity: Pulses equal, no cyanosis. Neurovascular intact. Full, normal range of motion. Neuro: Awake and alert, GCS 15, oriented to person, place, time, and situation. Cranial nerves II-XII grossly intact. Motor strength 5/5 in all extremities. Sensory grossly intact. Cerebellar exam normal. Normal gait. Psych: Awake, alert, with orientation to person, place and time. Behavior, mood, and affect are within normal limits. 16:49 Abdomen/GI: Inspection: abdomen appears normal, Bowel sounds: normal, Palpation: soft, mild abdominal tenderness, in the right lower quadrant. Vital Signs: 07:51 BP 139 / 71; Pulse 71; Resp 20 S; Temp 98(O); Pulse Ox 100% on R/A; Weight 72.57 kg aa5 (R); Height 6 ft. 1 in. (R); 09:00 BP 114 / 64; Pulse 52; Resp 16; Pulse Ox 100% on R/A; cm10 12:09 BP 114 / 79; Pulse 55; Resp 16; Pulse Ox 99% ; Pain 5/10; ll1 07:51 Body Mass Index 21.11 (72.57 kg, 185.42 cm) aa5 12:09 Pain Scale: Adult ll1 MDM: 11:46 ED course: Reevaluated patient, pain improved but still present. Patient is given the kdr option of either admission observation and reevaluation or discharged home with short course of antibiotics and pain medicine. Patient elected to be discharged. We discussed returning should he become further uncomfortable or concerned about his health status. Patient indicated that was the preferable plan to be discharged. Patient is otherwise happy with the care provided the plan for discharge and follow-up. He did not appear toxic in any way at time of discharge. Vital signs continue to be stable.. 11:48 Patient medically screened. kdr 16:49 Data reviewed: vital signs, nurses notes, lab test result(s), radiologic studies. ED kdr course: The patient states that he has no scrotal pain or testicular pain. Prior to discharge I discussed the results with the patient and his mother. I offered the patient admission with antibiotics or discharged with antibiotics and pain medication. The patient was appearing much more comfortable and interacting with his cell phone in bed. Patient elected to go home with the medication as ordered. Patient and family were happy with the care provided the plan for discharge and follow-up. 12/16 08:31 Order name: CBC with Diff; Complete Time: 09:13 bp 12/16 08:31 Order name: CMP; Complete Time: 09:13 bp 12/16 08:31 Order name: Lipase; Complete Time: 09:13 bp 12/16 08:41 Order name: Urinalysis w/ reflexes; Complete Time: 09:13 bp 12/16 09:13 Order name: CT Abd/Pelvis - IV Contrast Only; Complete Time: 10:15 kdr 12/16 08:20 Order name: IV Saline Lock; Complete Time: 08:20 cm10 12/16 08:20 Order name: Labs collected and sent; Complete Time: 08:44 cm10 12/16 10:22 Order name: PO challenge; Complete Time: 10:26 kdr Administered Medications: 09:25 Drug: morphine IVP or IV 4 mg Route: IVP; Infused Over: 4 mins; Site: right forearm; cm10 09:56 Follow up: Response: No adverse reaction cm10 09:25 Drug: Ondansetron IVP 4 mg Route: IVP; Site: right femoral; cm10 09:56 Follow up: Response: No adverse reaction cm10 09:25 Drug: NS 0.9% IV 1000 ml Route: IV; Rate: 1 bolus; Site: right forearm; cm10 10:26 Follow up: Response: No adverse reaction; IV Status: Completed infusion; IV Intake: cm10 1000ml 10:37 Drug: Ketorolac IVP 15 mg Route: IVP; Site: right forearm; cm10 11:12 Follow up: Response: No adverse reaction; Pain is decreased cm10 Disposition Summary: 12/16/22 11:48 Discharge Ordered Location: Home kdr Problem: an acute exacerbation kdr Symptoms: have improved kdr Condition: Stable kdr Diagnosis - Lower abdominal pain, unspecified - Right lower quadrant kdr Followup: kdr - With: Private Physician - When: 1 - 2 days - Reason: If symptoms return, Further diagnostic work-up, Recheck today's complaints, Continuance of care, Re-evaluation by your physician Discharge Instructions: - Discharge Summary Sheet kdr - Abdominal Pain, Adult, [id number] kdr Forms: - Medication Reconciliation Form kdr - Thank You Letter kdr - Antibiotic Education kdr - Prescription Opioid Use kdr Prescriptions: - Flagyl 500 mg Oral Tablet - take 1 tablet by ORAL route every 12 hours for 7 days; 14 tablet; Refills: 0, kdr Product Selection Permitted - Zofran 4 mg Oral Tablet - take 1 tablet by ORAL route every 4-6 hours As needed; 12 tablet; Refills: 0, kdr Product Selection Permitted - Cipro 500 mg Oral Tablet - take 1 tablet by ORAL route every 12 hours for 7 days; 14 tablet; Refills: 0, kdr Product Selection Permitted - Tramadol 50 mg Oral Tablet - take 1 tablet by ORAL route every 8 hours As needed as needed; 12 tablet; kdr Refills: 0, Product Selection Permitted Signatures: Dispatcher [employer] EDMS Rittger, Benedict, MD MD kdr Liat Sierra, RN RN aa5 Herminia Cratagena RN RN cm10
--- NOTE | 2022-12-16 11:48 | ER ---
Nurse's Notes [facility] Name: Leif Sahu Age: 22 yrs Sex: Male : 2000 Arrival Date: 12/16/2022 Time: 07:40 Bed 8 Private MD: Diagnosis: Lower abdominal pain, unspecified-Right lower quadrant Presentation: 12/16 07:51 Chief complaint: Patient states: RLQ pain that began last night, describes as cramping, aa5 reports hx of IBS. Reports vomiting. Coronavirus screen: vomiting. Ebola Screen: Patient denies travel to an Ebola-affected area in the 21 days before illness onset. Initial Sepsis Screen: Does the patient meet any 2 criteria? No. Patient's initial sepsis screen is negative. Does the patient have a suspected source of infection? No. Patient's initial sepsis screen is negative. Risk Assessment: Do you want to hurt yourself or someone else? Patient reports no desire to harm self or others. Onset of symptoms was November 2022. 07:51 Acuity: MARIAA 3 aa5 07:51 Method Of Arrival: Ambulatory aa5 Historical: - Allergies: 07:51 Codeine; aa5 - PMHx: 07:51 Asthma; ibs; aa5 - PSHx: 07:51 Cholecystectomy; Inguinal hernia; aa5 - Immunization history:: Adult Immunizations unknown. - Social history:: Smoking status: Patient denies any tobacco usage or history of. Screenin:09 [facility] ED Fall Risk Assessment (Adult) History of falling in the last 3 months, cm10 including since admission No falls in past 3 months (0 pts) Confusion or Disorientation No (0 pts) Intoxicated or Sedated No (0 pts) Impaired Gait No (0 pts) Mobility Assist Device Used No (0 pt) Altered Elimination No (0 pt) Score/Fall Risk Level 0 - 2 = Low Risk Oriented to surroundings, Maintained a safe environment. Abuse screen: Denies threats or abuse. Denies injuries from another. Nutritional screening: No deficits noted. Tuberculosis screening: No symptoms or risk factors identified. Assessment: 08:07 General: Appears in no apparent distress. uncomfortable, Behavior is calm, cooperative. cm10 Pain: Complains of pain in right lower quadrant Quality of pain is described as tender, Pain began 1 day ago. Is continuous. Neuro: No deficits noted. Level of Consciousness is awake, alert, obeys commands, Oriented to person, place, time, situation. Cardiovascular: No deficits noted. Capillary refill < 3 seconds. Respiratory: No deficits noted. Airway is patent Respiratory effort is even, unlabored, Respiratory pattern is regular, symmetrical, Breath sounds are clear bilaterally. GI: Bowel sounds present X 4 quads. Abd is soft Abdomen is tender to palpation in right lower quadrant Reports diarrhea, nausea, vomiting. 08:57 Reassessment: No changes from previously documented assessment. Patient and/or family ll1 updated on plan of care and expected duration. Pain level reassessed. 10:18 Reassessment: No changes from previously documented assessment. Patient and/or family cm10 updated on plan of care and expected duration. Pain level reassessed. Patient is alert, oriented x 3, equal unlabored respirations, skin warm/dry/pink. 12:08 Reassessment: No changes from previously documented assessment. Patient and/or family ll1 updated on plan of care and expected duration. Pain level reassessed. Patient is alert, oriented x 3, equal unlabored respirations, skin warm/dry/pink. Vital Signs: 07:51 BP 139 / 71; Pulse 71; Resp 20 S; Temp 98(O); Pulse Ox 100% on R/A; Weight 72.57 kg aa5 (R); Height 6 ft. 1 in. (R); 09:00 BP 114 / 64; Pulse 52; Resp 16; Pulse Ox 100% on R/A; cm10 12:09 BP 114 / 79; Pulse 55; Resp 16; Pulse Ox 99% ; Pain 5/10; ll1 07:51 Body Mass Index 21.11 (72.57 kg, 185.42 cm) aa5 12:09 Pain Scale: Adult ll1 ED Course: 07:42 Patient arrived in ED. im 07:51 Benedict Stahl MD is Attending Physician. kdr 07:51 Triage completed. aa5 07:51 Arm band placed on. aa5 07:58 Herminia Cartagena, ALEC is Primary Nurse. cm10 08:09 Initial lab(s) drawn, by me, held in ED. Inserted saline lock: 20 gauge in right cm10 forearm, using aseptic technique. Blood collected. 08:10 Pt visited by mother. cm10 08:10 Patient has correct armband on for positive identification. Bed in low position. Call cm10 light in reach. Side rails up X2. 08:44 CBC with Diff Sent. cm10 08:44 CMP Sent. cm10 08:44 Lipase Sent. cm10 08:44 Urinalysis w/ reflexes Sent. cm10 09:[address] via wheelchair. cm10 09:31 CT Abd/Pelvis - IV Contrast Only In Process Unspecified. EDMS 09:[address] Patient moved back from [address]. cm10 10:27 Pt being PO challenged at this time. Pt reports that his pain is returning. Provider cm10 made aware. 10:27 No provider procedures requiring assistance completed. cm10 12:09 IV discontinued, intact, bleeding controlled, No redness/swelling at site. Pressure ll1 dressing applied. Administered Medications: 09:25 Drug: morphine IVP or IV 4 mg Route: IVP; Infused Over: 4 mins; Site: right forearm; cm10 09:56 Follow up: Response: No adverse reaction cm10 09:25 Drug: Ondansetron IVP 4 mg Route: IVP; Site: right femoral; cm10 09:56 Follow up: Response: No adverse reaction cm10 09:25 Drug: NS 0.9% IV 1000 ml Route: IV; Rate: 1 bolus; Site: right forearm; cm10 10:26 Follow up: Response: No adverse reaction; IV Status: Completed infusion; IV Intake: cm10 1000ml 10:37 Drug: Ketorolac IVP 15 mg Route: IVP; Site: right forearm; cm10 11:12 Follow up: Response: No adverse reaction; Pain is decreased cm10 Medication: 12:10 VIS not applicable for this client. ll1 Intake: 10:26 IV: 1000ml; Total: 1000ml. cm10 Outcome: 11:48 Discharge ordered by . kdr 12:09 Discharged to home ambulatory. ll1 12:09 Condition: stable 12:09 Discharge instructions given to patient, Instructed on discharge instructions, follow up and referral plans. no drinking with medication, no driving heavy equipment, medication usage, Demonstrated understanding of instructions, follow-up care, medications, Prescriptions given X 4. 12:10 Patient left the ED. ll1 Signatures: Dispatcher [employer] EDMS Benedict Stahl MD MD kdr Calderon, Audri, RN RN aa5 Lisa Richardson RN RN ll1 Cami Gomez Clarissa, RN RN cm10
[2022-12-16 12:52] VITALS: TEMP 98
[2022-12-16 12:55] VITALS: BP 114/79; O2SAT 99
== END 2022-12-16 12:10 | disposition home or self-care (01) ==
LOC: ER 07:40
DX: R10.31 Right lower quadrant pain (principal); Z88.5 Allergy status to narcotic agent
CPT/HCPCS: 85025; 36415; 81003; 83690; 80053; 74177; Q9967; J2405; J7030